=== PATIENT | female | born 1985 | race Caucasian/White ===

== ENCOUNTER 2022-11-23 06:50 | Day surgery (SDC) | payer MEDICAID ==
--- NOTE | 2022-11-22 11:05 | P.HPOB ---
History of Present Illness H&P Date: 11/22/22 Chief Complaint: menorrhagia with irreg cycle 36 year old presents for D&C hysteroscopy endometrial ablation with NovaSure. Review of Systems All systems: negative Constitutional: Denies chills, Denies fever Eyes: denies blurred vision, denies pain Ears, nose, mouth and throat: Denies headache, Denies sore throat Cardiovascular: Denies chest pain, Denies shortness of breath Respiratory: Denies cough Gastrointestinal: Denies abdominal pain, Denies diarrhea, Denies nausea, Denies vomiting Genitourinary: Denies dysuria, Denies hematuria Musculoskeletal: Denies myalgias Integumentary: Denies pruritus, Denies rash Neurological: Denies numbness, Denies weakness Psychiatric: Denies anxiety, Denies depression Endocrine: Denies fatigue, Denies weight change Past Medical History Additional Past Medical History / Comment(s): migraines, History of Any Multi-Drug Resistant Organisms: None Reported Past Surgical History: Tubal Ligation Additional Past Surgical History / Comment(s): jaw surgery 2002, Past Anesthesia/Blood Transfusion Reactions: No Reported Reaction Smoking Status: Former smoker Medications and Allergies Home Medications Medication Instructions Recorded Confirmed Type Atogepant [Qulipta] 30 mg PO DAILY 11/15/22 11/15/22 History Venlafaxine HCl [Effexor XR] 150 mg PO DAILY 11/15/22 11/15/22 History Verapamil HCl [Verapamil ER] 120 mg PO BID 11/15/22 11/15/22 History busPIRone HCL [Buspirone HCl] 10 mg PO TID 11/15/22 11/15/22 History Allergies Allergy/AdvReac Type Severity Reaction Status Date / Time No Known Allergies Allergy Verified 11/15/22 14:44 Exam Osteopathic Statement: *. No significant issues noted on an osteopathic structural exam other than those noted in the History and Physical/Consult. HEart: RRR Lungs: CTAB Abdomen: soft, nontender Extremeties: neg jason's Assessment and Plan (1) Menorrhagia with irregular cycle Status: Acute Code(s): N92.1 - EXCESSIVE AND FREQUENT MENSTRUATION WITH IRREGULAR CYCLE SNOMED Code(s): 014331948 Plan: 1. D&C hysteroscopy and endometrial ablation with NovaSure
[~2022-11-23 06:50] MED LIST: Pre Op ABX Message 1 EACH MISC MISCELLANE ONE
[2022-11-23] MEDS ORDERED: droPERidol 5 MG/2 ML VIAL IVP ONE ×2 (07:07→10:42)
[2022-11-23] MEDS ORDERED: LIDOCAINE 1% (10MG/ML) FOR IV START INTRADERMA PRN (07:07)
[2022-11-23] MEDS ORDERED: ONDANSETRON 4 MG/2 ML VIAL IVP ONE ×2 (07:07→10:26)
[2022-11-23] MEDS ORDERED: HYDROmorphone 0.5 MG/0.5 ML SYRINGE IVP PRN (07:07)
[2022-11-23] MEDS ORDERED: LACTATED RINGERS 1,000 ML IV SCH (07:07)
[2022-11-23] MEDS ORDERED: DEXAMETHASONE SOD PHOSPHATE 4 MG/ML 1 ML VIAL IV ONE (07:07)
[2022-11-23] MEDS ORDERED: SCOPOLAMINE 1 MG/72 HR PATCH TRANSDERM ONE (07:07)
[2022-11-23 07:54] LABS: Basophils % (A) 0 %; Eosinophils # (A) 0.1 k/uL (0-0.7); Eosinophils % (A) 2 %; HCT 41.7 % (34.0-46.0); HGB 14.3 gm/dL (11.4-16.0); Lymphocytes # (A) 1.7 k/uL (1.0-4.8); Lymphocytes % (A) 25 %; MCH 30.8 pg (25.0-35.0); MCHC 34.2 g/dL (31.0-37.0); Mean Platelet Volume 6.7; Monocytes # (A) 0.3 k/uL (0-1.0); Monocytes % (A) 5 %; Neutrophils # (A) 4.4 k/uL (1.3-7.7); Neutrophils % (A) 66 %; Platelet Count 304 k/uL (150-450); RBC 4.64 m/uL (3.80-5.40); RDW 12.2 % (11.5-15.5); WBC 6.7 k/uL (3.8-10.6)
[2022-11-23] MEDS ORDERED: MIDAZOLAM 2 MG/2 ML VIAL ONE (08:18)
[2022-11-23] MEDS ORDERED: fentaNYL (PF) 50 MCG/ML 2 ML AMP ONE (08:18)
[2022-11-23] MEDS ORDERED: LIDOCAINE 2% INJ 20 MG/ML (2 ML VIAL) ONE (08:18)
[2022-11-23] MEDS ORDERED: PROPOFOL 10 MG/ML 20 ML VIAL IV ONE (08:18)
[2022-11-23] MEDS ORDERED: KETOROLAC 15 MG/ML 1 ML VIAL ONE (08:18)
--- NOTE | 2022-11-23 08:53 | P.OP ---
Date of Procedure: 11/23/22 Preoperative Diagnosis: 1. menorrhagia with irregular cycle Postoperative Diagnosis: same Procedure(s) Performed: D&C, hysteroscopy, endometrial ablation with NovaSure Anesthesia: MAC (LMA) Surgeon: Alicia Zambrano Estimated Blood Loss (ml): 2 IV fluids (ml): 200 Urine output (ml): 25 Pathology: other (Endometrial curettings) Condition: stable Disposition: PACU Operative Findings: Cavity length 6 cm, width 3 cm, power 99 W, time of ablation 48 seconds. Adequate ablation after NovaSure. Description of Procedure: Patient is taken the operating room where general anesthesia was obtained without difficulty. She was prepped and draped in normal sterile fashion dorsal lithotomy position, legs placed in the [place] cane stirrups. Bladder was drained of all urine. Weighted speculum placed in the vagina and the anterior lip the cervix was grasped with serial tooth tenaculum. The uterus sounded to 8 cm and the cervix measured 2 cm making the cavity length 6 cm. The cervix was dilated to #8 Hegar dilator. Hysteroscopy was then performed. Both ostia were visualized and there was a smooth contour of the uterus. Sharp curet was then gently used to obtain endometrial curettings. The NovaSure was introduced into the uterus with a cavity length of 6 cm, width 3 cm. after cavity assessment was passed, the time of ablation was 48 seconds at 99 W. Hysteroscopy was again performed and adequate ablation was noted. All instruments removed from the vagina. Patient tolerated the procedure well, sponge and instrument counts were correct 2 and she was taken to recovery in stable condition.
[2022-11-23 09:11] VITALS: TEMP 96.8
[2022-11-23] MEDS ORDERED: ONDANSETRON 4 MG/2 ML VIAL ONE (10:23)
[2022-11-23 10:35] VITALS: BP 105/72; PULSE 56; RESP 16
== END 2022-11-23 11:12 | disposition home or self-care (01) ==
LOC: OR 06:50 → MERGE 08:25 → OR 11:12
PROVIDERS: ATTEND Obstetrics & Gynecology
DX: N92.1 Excessive and frequent menstruation with irregular cycle (principal); Z98.890 Other specified postprocedural states; Z98.51 Tubal ligation status; Z87.891 Personal history of nicotine dependence; Z79.899 Other long term (current) drug therapy
CPT/HCPCS: 81025; 88305; 85025; 58563; J2250; J1100; J2405; J3010; J1885; J2704; J1790; J2001